=== PATIENT | male | born 1980 | race Caucasian/White ===

== ENCOUNTER → 2019-08-13 14:43 | Outpatient (CLI) | payer OTHER, SELFPAY ==
--- NOTE | 2019-08-13 14:52 | CA_ITS ---
APPROVED REPORT Right Upper Extremity Venous Study for DVT. 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 States the knot showed up about a week or so ago. States there is pain with into. No edema noted. Risk Factors Denies trauma. Vein Imaging IJV (R): Normal phasic flow is seen. Normal flow, augmentation and compression is seen. No evidence of Deep Vein Thrombosis. No abnormalities are demonstrated. Axillary (R): Normal phasic flow is seen. Normal flow, augmentation and compression is seen. No evidence of Deep Vein Thrombosis. No abnormalities are demonstrated. Brachial (R): Normal phasic flow is seen. Normal flow, augmentation and compression is seen. No evidence of Deep Vein Thrombosis. No abnormalities are demonstrated. Basilic (R): Compressible Cephalic (R): Normal phasic flow is seen. Normal flow, augmentation and compression is seen. No evidence of Deep Vein Thrombosis. No abnormalities are demonstrated. Radial (R): Compressible Ulnar (R): Compressible Findings Hypoechoic density seen at the palpable knot region etiology indeterminant. Conclusion Duplex evaluation of the right upper extremity demonstrates no evidence of DVT. Critical Notification Physician Notified Date: 08/13/19 Time: 15:30 Physician Name: Gerardo Report Read Back Electronically signed by : Scar Jefferson MD 08/16/2019 14:12:10
== END ==
PROVIDERS: PCP Internal Medicine; Visit Provider Internal Medicine
DX: M79.601 Pain in right arm (principal)
CPT/HCPCS: 93971

== ENCOUNTER 2019-11-29 13:46 | Outpatient (CLI) | payer OTHER, SELFPAY ==
[2019-11-29 14:20] VITALS: BP 113/79; PULSE 67; RESP 20; O2SAT 97
== END 2019-11-29 14:20 | disposition home or self-care (01) ==
LOC: INF 13:47
PROVIDERS: PCP Internal Medicine; Visit Provider Surgery
DX: K40.20 Bilateral inguinal hernia, without obstruction or gangrene, not specified as recurrent (principal)
CPT/HCPCS: 96372

== ENCOUNTER → 2020-07-06 15:27 | Outpatient (CLI) | payer OTHER, SELFPAY | PROVIDERS: PCP Internal Medicine; Visit Provider Internal Medicine | DX: Z03.818 Encounter for observation for suspected exposure to other biological agents ruled out (principal); R50.9 Fever, unspecified | CPT/HCPCS: U0003 ==

== ENCOUNTER 2020-07-09 20:00 | Emergency (ER) | payer OTHER, SELFPAY ==
[2020-07-09 20:16] VITALS: BP 108/77; PULSE 81; RESP 18; TEMP 37.6; O2SAT 100; BMI 27.4
--- NOTE | 2020-07-09 20:30 | HMH.EDUTC ---
[facility] – [place], [place] Disposition Clinical Impression: Sinusitis Qualifiers: Sinusitis location: unspecified location Chronicity: acute Recurrence: non-recurrent Qualified Code(s): J01.90 - Acute sinusitis, unspecified Otitis media Qualifiers: Otitis media type: suppurative Chronicity: acute Laterality: bilateral Recurrence: non-recurrent Spontaneous tympanic membrane rupture: without spontaneous rupture Qualified Code(s): H66.003 - Acute suppurative otitis media without spontaneous rupture of ear drum, bilateral Disposition: Home, Self-Care Condition on Discharge: Good Instructions: Sinusitis, DI for Sinusitis Additional Instructions: Drink plenty of fluids. Take tylenol or ibuprofen for pain or fever. Take the medications as directed. Follow up with your regular doctor. GO TO THE ER FOR ANY WORSENING SYMPTOMS Don't start the oral steroids until tomorrow, since you had the shot here today. Prescriptions: Brompheniramine/Pseudoephed/Dm [Bromfed Dm Cough Syrup] 5 ml PO Q6HP PRN #240 syrup PRN Reason: Cough Transmission Status: Received by [facility] Doxycycline Hyclate [Doxycycline 100mg Capsule] 100 mg PO Q12 10 Days #20 cap Transmission Status: Received by [facility] methylPREDNISolone [Medrol] 4 mg PO DIRECTED 6 Days #21 [email or web address] Transmission Status: Received by [facility] Referrals: Star Carrillo [Primary Care Provider] - Time of Disposition: 20:50 Medical Decision Making - Medical Records Medical records reviewed: No: I reviewed the patient's medical records. - Neo Inquiry Pt receiving controlled substance: No Vital Signs: 07/09/20 20:16 Temperature 99.7 F H Temperature Source Oral Pulse Rate [Radial] 81 Respiratory Rate 18 Blood Pressure [Right Arm] 108/77 L Blood Pressure Mean [Right Arm] 87 Blood Pressure Source [Right Arm] Automatic Cuff Blood Pressure Position [Right Arm] Sitting 02 Sat by Pulse Oximetry 100 Oxygen Delivery Method Room Air - Lab Data Lab results reviewed: Yes: I reviewed the patient's lab results. Orders (Tests/Meds): ED MEDICATIONS Discontinued Medications Generic Name Dose Route Start Last Admin Trade Name Freq PRN Reason Stop Dose Admin Ceftriaxone Sodium 1 gm 07/09/20 20:31 07/09/20 20:41 Rocephin 1gm Vial IM 07/09/20 20:32 1 gm ONCE ONE Administration Protocol Lidocaine HCl 0 ml 07/09/20 20:31 07/09/20 20:41 Lidocaine 1% 10ml Mdv IM 07/09/20 20:32 2.1 ml ONCE ONE Administration Methylprednisolone Sodium Succinate 125 mg 07/09/20 20:31 07/09/20 20:41 Solu-Medrol 125mg/2ml Vial IM 07/09/20 20:32 125 mg ONCE ONE Administration [facility] [place], [place] HPI - General Stated complaint: Headaches; fever Time Seen by Provider: 07/09/20 20:30 Mode of Arrival: Ambulatory Source of Information: Patient Limitations: No Limitations Description of Symptoms (Recalled from Triage Doc. by RN): diagnosed with a sinus infection 2 weeks ago. Finished antibiotic and still havig headaches. Has tested negative for COVID x 2. HEENT Symptoms (Recalled from RN notes): Yes Resp Symptoms (Recalled from RN notes): No Skin Symptoms (Recalled from RN notes): No MS Symptoms (Recalled from RN notes): No Functional Status (Recalled from RN notes): wnl - History of Present Illness Provider Complaint: He c/o sinus congestion, sinus drainage and pressure for the past 2 weeks. He has finished a round of amoxicillin with no improvement of his symptoms. He has had 2 negative COVID-19 test within the past 2 weeks due to his job and his symptoms. - Related Data Previous Rx's Medication Instructions Recorded Brompheniramine/Pseudoephed/Dm 5 ml PO Q6HP PRN #240 syrup 07/09/20 [Bromfed Dm Cough Syrup] Doxycycline Hyclate [Doxycycline 100 mg PO Q12 10 Days #20 cap 07/09/20 100mg Capsule] methylPREDNISolone [Medrol] 4 mg PO DIRECTED 6 Days #21 07/09/20 tab.ds.pk Allergies [place]
[2020-07-09 21:02] VITALS: BP 108/77; PULSE 81; RESP 18; TEMP 37.6; O2SAT 100
== END 2020-07-09 21:03 | disposition home or self-care (01) ==
PROVIDERS: Emergency Provider Nurse Practitioner Family; PCP Internal Medicine
DX: J01.90 Acute sinusitis, unspecified (principal); H66.003 Acute suppurative otitis media without spontaneous rupture of ear drum, bilateral; Z88.1 Allergy status to other antibiotic agents
CPT/HCPCS: 96372; 99201

== ENCOUNTER → 2020-07-15 08:03 | Outpatient (CLI) | payer OTHER, SELFPAY ==
--- NOTE | 2020-07-15 | MR_ITS ---
PROCEDURE: MR SHOULDER LT WO CON CLINICAL INDICATION: LEFT SHOULDER PAIN LT SHOULDER PAIN PATRIZIA LIMITED ROM. NO INJURY. NO PRIOR. COMPARISON: No exams were available for comparison TECHNIQUE: Routine multiplanar multi echo sequences are performed without gadolinium enhancement. FINDINGS: There is mild hypertrophy of the acromioclavicular joint with mild bone marrow edema involving the distal aspect of the a chromium at the joint. There is mild thickening of the supraspinatus tendon with slight increase in the T2 signal suggesting mild tendinopathy/tendinosis. No evidence of rotator cuff tear. No evidence labral tear. The bicipital tendon is in place. Are sub chondral cystic changes involving the humeral head. No significant effusion IMPRESSION: 1. Mild subacromial stenosis with mild tendinopathy/tendinosis of the supraspinatus tendon. 2. No evidence of rotator cuff tear. 3. Subchondral cystic changes of the humeral head Dictated by: Scar Jefferson MD 07/16/2020 09:19 Scar Jefferson MD in [place] 07/16/2020 09:19
== END ==
PROVIDERS: PCP Internal Medicine; Visit Provider Internal Medicine
DX: M25.512 Pain in left shoulder (principal)
CPT/HCPCS: 73221

== ENCOUNTER 2020-09-04 09:00 | Outpatient (RCR) | payer OTHER, SELFPAY | END 2020-09-04 09:05 | disposition home or self-care (01) | LOC: OT 09:00 | PROVIDERS: PCP Internal Medicine; Visit Provider Orthopaedic Surgery Adult Reconstructive Orthopaedic Surgery | DX: M25.512 Pain in left shoulder (principal); M75.42 Impingement syndrome of left shoulder | CPT/HCPCS: 97110; 97165; 97530 ==

== ENCOUNTER → 2021-03-19 11:20 | Outpatient (CLI) | payer OTHER, SELFPAY | LOC: RT 11:22 | PROVIDERS: PCP Internal Medicine; Visit Provider Internal Medicine | DX: R00.2 Palpitations (principal); R00.0 Tachycardia, unspecified | CPT/HCPCS: 93270 ==

== ENCOUNTER → 2021-12-27 16:05 | Outpatient (CLI) | payer OTHER, SELFPAY | PROVIDERS: PCP Family Medicine; Visit Provider Internal Medicine | DX: U07.1 COVID-19 (principal) | CPT/HCPCS: C9803; U0003; U0005 ==

== ENCOUNTER 2024-05-08 14:59 | Outpatient (CLI) | payer BC, SELFPAY ==
[2024-05-08 14:25] LABS: Basophils % 0.7 % (0.1-2.0); Eosinophils # 0.1 K/mm3 (0.0-0.4); Eosinophils % 1.4 % (0.1-12.0); Hematocrit 48.8 % (42.0-52.0); Hemoglobin 16.2 g/dL (14.1-18.0); Lymphocytes # 2.1 K/mm3 (0.7-4.5); Lymphocytes % 43.2 % (10-50); Mean Corpuscular HGB Conc 33.1 g/dL (31.8-35.4); Mean Corpuscular Hemoglobin 30.4 pg (27.0-31.2); Mean Corpuscular Volume 91.6 fl (80-94); Mean Platelet Volume 9.5 fl (7.4-10.4); Monocytes # 0.3 K/mm3 (0.1-1.0); Monocytes % 5.7 % (1.7-9.3); Neutrophils # 2.3 K/mm3 (1.8-7.8); Neutrophils % 48.9 % (37.0-80.0); Platelet Count 293 K/mm3 (142-424); Red Blood Count 5.33 M/mm3 (4.60-6.20); Red Cell Distribution Width 13.7 % (11.5-17.5); White Blood Count 4.8 K/mm3 (4.8-10.8)
[2024-05-08 15:23] LABS: Thyroid Stimulating Hormone 1.52 uIU/mL (0.465-4.68)
[2024-05-10 08:22] LABS: Testosterone,Total 244 ng/dL (264-916)
== END 2024-05-08 23:59 | disposition home or self-care (01) ==
LOC: LAB.DROPOF 15:00
PROVIDERS: PCP Internal Medicine; Visit Provider Internal Medicine
DX: R53.83 Other fatigue (principal)
CPT/HCPCS: 84403; 84443; 85025

== ENCOUNTER 2024-05-29 12:00 | Outpatient (CLI) | payer BC, SELFPAY ==
[2024-05-31 08:38] LABS: FSH 3.9 mIU/mL (1.5-12.4); LH 3.2 mIU/mL (1.7-8.6); Prolactin 9.3 ng/mL (3.9-22.7); Testosterone,Total 255 ng/dL (264-916)
== END 2024-05-29 23:59 | disposition home or self-care (01) ==
LOC: LAB.DROPOF 05-30 08:52
PROVIDERS: PCP Internal Medicine; Visit Provider Internal Medicine
DX: R79.89 Other specified abnormal findings of blood chemistry (principal); R53.83 Other fatigue
CPT/HCPCS: 83001; 83002; 84146; 84403

== ENCOUNTER 2025-10-13 17:00 | Outpatient (RCR) | payer BC, SELFPAY ==
--- NOTE | 2025-09-24 16:57 | HMH.PTOPEV ---
PT Evaluation Rehab PT Outpatient Evaluation Start: 09/24/25 16:15 Freq: Status: Active Protocol: Document 09/24/25 16:15 JAN (Rec: 09/24/25 16:57 KRISTYJOSE [id number]) E-signed By Mahin Her, PT Outpatient Therapy Subjective History Subjective History Pt is a 44 yom who is referred to [facility] outpatient PT with complaints of low back pain with intermitting radiation into his left LE. Pt reports that these symptoms began approximately 3-4 months ago and have progressively worsened. Pt reports that he cannot recall a particular event that led to or preceded these symptoms. Pt describes his symptoms has a dull, achey pain in his back with a shooting pain down the posterior portion of his left leg. Pt reports that his symptoms are worsened with sitting on a hard surface, standing, moving upright from a bent position. Pt also reports significant difficulty sleeping. Pt reports that he had a similar episode in his 20s, attended PT, which helped tremendously. PMH: None New diagnosis of No cancer in past 12 months? Chief Complaint Pain,Stiff,Weakness Symptom Type Ache,Sharp Symptoms Relieved By Nothing Symptoms Aggravated Standing,Walking,Lifting By Prior Functional None Limitations Current Functional Lifting,Housework,Standing,Squatting,Walking,Stairs Limitations Symptom Description Constant but Variable,Activity Dependent Level of pain today 2 (0-10) Pain scale - at its 2 best (0-10) Pain scale - at its 7 worst (0-10) Lumbopelvic Eval Posture Thoracic Spine Increased Kyphosis Posture Standing Position Lumbar Spine Posture Flexed Standing Position Assistive device Assistive Devices None / NA Palapation tenderness left lumbar spinal Yes: L5-S1 TTP 3/4 tenderness paraspinal Yes: Palpable TrP to lumbar paraspinals at L5-S1 left tenderness side Lumbar/Sacral Tenderness,Trigger Point Palpation Findings Accessory Movement L5 left S1 left Range of Motion Lumbar Spine Active 65 Flexion Range of Motion (degrees) Lumbar Spine Active 5 Extension Range of Motion (degrees) Left Lumbar Spine 25 Lateral Flexion Active Range of Motion (degrees) Right Lumbar Spine 25 Lateral Flexion Active Range of Motion (degrees) Lumbar Spine ROM Soft Tissue Tightness,Pain Limitations Manual Muscle Test Left Knee Extension 5 Normal Strength Grade Knee Flexion 5 Normal Strength Grade Hip Flexion Strength 5 Normal Grade Hip Abduction 3 Fair Strength Grade DTR Rt Patellar 2+ Lt Patellar 2+ Rt Gastroc/Soleus 2+ Lt Gastroc/Soleus 2+ Altered Sensation Bilateral Comment Intact to LT globally and symmetrically Special Tests Lumbar Spine Screen Positive Forward Bending Test Positive Left - Standing Forward Bending Test Positive Left - Sitting Sciatic Nerve Positive Left Tension Test Crossed Straight Leg Positive Left Raise Test Oswestry Index Section 1 Pain Intensity The pain comes and goes and is moderate Section 2 Personal Care ( my way of washing or dressing even though it causes Washing,Dresing) some pain Section 3 Lifting I can lift heavy weights, but it gives me extra pain Section 4 Walking I have some pain when walking but it does not increase with distance Section 5 Sitting I can sit in my favorite chair for as long as I like Section 6 Standing I have some pain on standing, but it does not increase with time Section 7 Sleeping Because of my pain, my normal night's sleep is less than 6 hours sleep Section 8 Social Life My social life is normal but increases the degree of pain Section 9 Traveling I get extra pain while traveling, but it does not compel me to seek al Section 10 Changing Degreee of My pain is neither getting better or worse Pain Score and Risk Level Oswestry Score 15 Oswestry Risk Level Moderate Disability Outpatient Therapy Assessment Impairments Problems/ Palpation Tenderness,Impaired Range of Motion,Impaired Impairmments Strength,Impaired Walking,Impaired Standing,Impaired Sitting,Subjective C/O Pain,Impaired Self Care/Self Management Prognosis Rehab Potential Good Comment w HEP compliance Clinical Impression Consistent with Yes Diagnosis Consistent with Low back pain with referred pain Additional details: Pt demonstrates a clear extension directional preference. PT Patient Goals PT Patient Goals PT Short Term 3 weeks: Patient Goals 1. Patient will report a 48 hour average pain of 5/10 on the numeric pain rating scale to demonstrate improvement in quality of life and increased functional capacity. 2. Patient will improve L hip abductor strength upon manual muscle testing to 4/5 facilitate increased spinal stabilization and improved functional capabilities. 3. Patient will demonstrate a reduction in trigger point sensitivity to Grade 2 with manual palpation to improve comfort during activity and soft tissue mobility. 4. Patient will improve lumbar ROM by 5 degrees into lumbar extension to demonstrate improved movement patterns with functional mobility and ADLs. 5. Pt will demonstrate HEP compliance by completing prescribed HEP 4-5x/week. 6. Pt will improve OSKAR score to 11 to demonstrated improved functional mobility, overall improvement and improved quality of life. PT Shelter Patient 6 weeks: Goals 1. Patient will report a 48 hour average pain of 2-3/10 on the numeric pain rating scale to demonstrate improvement in quality of life and increased functional capacity. 2. Patient will improve L hip abductor strength upon manual muscle testing to 4/5 facilitate increased spinal stabilization and improved functional capabilities. 3. Patient will demonstrate a reduction in trigger point sensitivity to Grade 0-1 with manual palpation to improve comfort during activity and soft tissue mobility. 4. Patient will improve lumbar ROM by 10-15 degrees into lumbar extension to demonstrate improved movement patterns with functional mobility and ADLs. 5. Patient will be able to stand/walk for 1 hour at one time to demonstrate improved community ambulation for activities, such as grocery shopping and other activities. 6. Pt will be able to lift a 10# weight from floor with proper lifting mechanics and less than 2/10 pain to demonstrate the ability to lift items, such as grocery bags, milk jugs, laundry basket, etc. 7. Pt will improve OSKAR score to 7 to demonstrated improved functional mobility, overall improvement and improved quality of life. 8. Pt will demonstrate centralization of symptoms with abolished left LE pain during repeated end-range lumbar extension/flexion movements, indicating improved mechanical function and decreased nerve root irritation . Outpatient Therapy Plan of Care Treatment Plan May Include Therapeutic Exercise Yes Including Home Exercise Program Manual Therapy Yes Techniques Neuromuscular Re- Yes education Therapeutic Yes Activities to Return to Previous Functional/Work Level Gait Training Yes ADL/Self Care Yes Education Mechanical Traction Yes Dry Needling Yes Thermal Modalities Yes Electrical Yes Stimulation Massage Yes Manual Lymphatic Yes Drainage Eval/Re-Eval Yes Frequency Times per week 2 Duration Number of Weeks 6 Addendums This patient is a No candidate for social or vocational rehab ? Patient/Guardian Yes verbally acknowledges understanding of treatment program and consents to further treatment? Patient/Guardian Yes verbally acknowledges understanding of diagnosis, prognosis and goals for treatment? Eval Complexity PT Charges 24006 - Low Complexity Shoulder/Elbow Eval Shoulder Objective Measurements Elbow Objective Measurements PHYSICIAN CERTIFICATION: I certify the specified therapy services for Lee Raymundo are required, authorized, and reviewed every 30 days.
== END 2025-10-13 23:59 | disposition home or self-care (01) ==
LOC: PT 17:00
PROVIDERS: Visit Provider Internal Medicine
DX: M54.42 Lumbago with sciatica, left side (principal)
CPT/HCPCS: 97110; 97140; 97161

== ENCOUNTER 2025-11-07 17:14 | Outpatient (RCR) | payer BC, SELFPAY ==
--- NOTE | 2025-11-10 07:43 | HMH.RHREAS ---
Rehab Reassessment Rehab OP Re-assessment Start: 11/07/25 17:14 Freq: Status: Active Protocol: Document 11/07/25 17:10 JAN (Rec: 11/10/25 07:42 JAN [id number]) E-signed By Mahin Her, PT Oswestry Index Section 1 Pain Intensity The pain comes and goes and is moderate Section 2 Personal Care ( change my way of washing or dressing in order to avoid Washing,Dresing) pain Section 3 Lifting I can lift heavy weights, but it gives me extra pain Section 4 Walking I have some pain when walking but it does not increase with distance Section 5 Sitting I can sit in my favorite chair for as long as I like Section 6 Standing I have some pain on standing, but it does not increase with time Section 7 Sleeping Because of my pain, my normal night's sleep is less than 6 hours sleep Section 8 Social Life My social life is normal and gives me no extra pain Section 9 Traveling I get some pain when traveling, but none of my usual forms of travel m Section 10 Changing Degreee of My pain seems to be getting better, but improvement is Pain slow Score and Risk Level Oswestry Score 11 Oswestry Risk Level Mild Disability Rehab Re-assessment Subjective Subjective Pt reports that he is approximately 40-50% improved. Pt reports that there are days where has 0 pain but reports that overall his average pain is a 3-4/10. The pt reports that he is having much less pain at work when he is standing and walking but he reports that sitting at home on the couch seems to be when he is in the most pain. Pt reports that PT seems to be helping and would like to continue. Objective Objective Notes OSKAR: 11 (15 on IE) MMT: L hip abductor 4/5 ROM: Lumbar extension 12 degrees TTP: 2/4 to L4-S1 Assessment Progress Assessment Progressing as Expected Assessment Notes Pt presents this date for his first reassessment since his initial evaluation. The pt's PT has consisted of manual therapy to improve his lumbar segmental mobility , exercises focused on improving lumbar extension and lumbopelvic motor control. The pt has responded well to PT at this time, demonstrating improvements in strength and motion. The pt would continue to benefit from skilled PT at this time. PT Patient Goals PT Short Term 3 weeks: MET Patient Goals 1. Patient will report a 48 hour average pain of 5/10 on the numeric pain rating scale to demonstrate improvement in quality of life and increased functional capacity. 2. Patient will improve L hip abductor strength upon manual muscle testing to 4/5 facilitate increased spinal stabilization and improved functional capabilities. 3. Patient will demonstrate a reduction in trigger point sensitivity to Grade 2 with manual palpation to improve comfort during activity and soft tissue mobility. 4. Patient will improve lumbar ROM by 5 degrees into lumbar extension to demonstrate improved movement patterns with functional mobility and ADLs. 5. Pt will demonstrate HEP compliance by completing prescribed HEP 4-5x/week. 6. Pt will improve OSKAR score to 11 to demonstrated improved functional mobility, overall improvement and improved quality of life. PT Media Associate Patient 6 weeks: NOT MET Goals 1. Patient will report a 48 hour average pain of 2-3/10 on the numeric pain rating scale to demonstrate improvement in quality of life and increased functional capacity. 2. Patient will improve L hip abductor strength upon manual muscle testing to 4/5 facilitate increased spinal stabilization and improved functional capabilities. 3. Patient will demonstrate a reduction in trigger point sensitivity to Grade 0-1 with manual palpation to improve comfort during activity and soft tissue mobility. 4. Patient will improve lumbar ROM by 10-15 degrees into lumbar extension to demonstrate improved movement patterns with functional mobility and ADLs. 5. Patient will be able to stand/walk for 1 hour at one time to demonstrate improved community ambulation for activities, such as grocery shopping and other activities. 6. Pt will be able to lift a 10# weight from floor with proper lifting mechanics and less than 2/10 pain to demonstrate the ability to lift items, such as grocery bags, milk jugs, laundry basket, etc. 7. Pt will improve OSKAR score to 7 to demonstrated improved functional mobility, overall improvement and improved quality of life. 8. Pt will demonstrate centralization of symptoms with abolished left LE pain during repeated end-range lumbar extension/flexion movements, indicating improved mechanical function and decreased nerve root irritation . Plan Plan Continue as per initial POC, utilizing the following methods and activities. This progress note is being sent to the referring provider for an update on the pt's care. Frequency of Therapy 2/week Duration of Therapy 4 weeks Therapeutic Exercise Yes Including Home Exercise Program Manual Therapy Yes Techniques Neuromuscular Re- Yes education Therapeutic Yes Activities to Return to Previous Functional/Work Level Thermal Modalities Yes Electrical Yes Stimulation Iontophoresis Yes Eval/Re-Eval Yes Time and Billing Re-Eval Time 10 Re-Eval Billing 0 Units Charge for PT No reassessment? PHYSICIAN CERTIFICATION: I certify the specified therapy services for Lee Raymundo are required, authorized, and reviewed every 30 days.
== END 2025-11-07 23:59 | disposition home or self-care (01) ==
LOC: PT 17:14
PROVIDERS: Visit Provider Internal Medicine
DX: M54.42 Lumbago with sciatica, left side (principal)
CPT/HCPCS: 97110; 97140